=== PATIENT | male | born 1970 | race Caucasian/White ===

== ENCOUNTER 2016-11-19 23:48 | Emergency (ER) | payer MEDICAID ==
--- NOTE | ~2016-11-19 | CR253 ---
STS. [facility] A Service of [facility] & [facility] RADIOLOGY TEXT RESULTS PATIENT: ADIEL NICOLE LOCATION: SED : 72 UNIT #: [id number] AGE: [address]: ABRIL MENENDEZ SEX: M ORDER DR: [id number] [address] [address] [id number] E MR#: [id number] Acc #: [id number] NAME: ADIEL NICOLE : 1970 SEX: M STUDY DATE/TIME: 11/20/2016 0:34 UNIT: SED ROOM: STUDY DESCRIPTION: CR Tibia and Fibula 2 Views Rt Attending Physician: Abril Menendez Aprn Ordering Physician: Abril Menendez Aprn Primary Care Physician: Estephania Amor M.D. MEDICAL IMAGING REPORT This report is preliminary unless electronic signature is present. EXAM Right tibia and fibula INDICATION Right tib-fib pain after tripping last night. FINDINGS There is no evidence of fracture, dislocation, or radiopaque foreign body. IMPRESSION Normal tibia and fibula. Dictated by... Ryan Conti M.D. THIS IS AN ELECTRONICALLY VERIFIED REPORT Ryan Conti M.D. at 11/20/2016 1:32 PM JORGE/sanjeev TD: 11/20/2016 08:31 JOB #: [id number] MEDICAL IMAGING REPORT Page 1 of 1
--- NOTE | ~2016-11-19 | CR21 ---
[facility]. [facility] A Service of [facility] & [facility] RADIOLOGY TEXT RESULTS PATIENT: ADIEL NICOLE LOCATION: SED : 72 UNIT #: [id number] AGE: [address]: ABRIL MENENDEZ SEX: M ORDER DR: [id number] [address] [address] [id number] E MR#: [id number] Acc #: [id number] NAME: ADIEL NICOLE : 1970 SEX: M STUDY DATE/TIME: 11/20/2016 0:34 UNIT: SED ROOM: STUDY DESCRIPTION: CR Ankle Min 3 Views Rt Attending Physician: Abril Menendez Aprn Ordering Physician: Abril Menendez Aprn Primary Care Physician: Estephania Amor M.D. MEDICAL IMAGING REPORT This report is preliminary unless electronic signature is present. EXAM Right ankle INDICATION Right ankle pain after tripping tonight. FINDINGS AP, lateral, and oblique projections of the ankle show satisfactory integrity of the joint mortise with a smooth articular surface. There is no identifiable fracture, dislocation, or radiopaque foreign body. IMPRESSION Normal ankle. Dictated by... Ryan Conti M.D. THIS IS AN ELECTRONICALLY VERIFIED REPORT Ryan Conti M.D. at 11/20/2016 1:32 PM Douglas TD: 11/20/2016 08:33 JOB #: [id number] MEDICAL IMAGING REPORT Page 1 of 1
[~2016-11-19 23:48] MED LIST: ADDERALL20 MG PO; ADDERALLXR PO; BACTRIM 400-801 TA1 PO; BACTRIM DS TABL1 TA1 PO; BACTROBAN22 GM TP; CIPRO PO; CLEOCIN150 M1 PO; DICLOFENAC; EFFEXOR PO; EFFEXOR XR75 MG PO; FAMOTIDINE PO; FLEXERIL PO; FLEXERIL10 M1 PO; FLOMAX0.4 M1; FLOMAX0.4 M1 PO; IBUPROFEN PO; IBUPROFEN800 MG PO; KEFLEX500 M1 PO; LIPITOR PO; LIPITOR20 MG; LIPITOR20 MG DOB; LIPITOR20 MG PO; LOPRESSOR PO; LORTAB 101 TAB 10/5 PO; MEDROL PO; METOPROLOL SUCC50 MG PO; MULTIPLE VITAMIN; NEXIUM20 MG DOB; NO MEDICATIONS; PERCOCET 5-3251 TAB PO; PHENERGAN25 M1 PO; PROZAC PO; PROZAC40 MG PO; ROBAXIN 750750 M1 PO; SEROQUEL PO; TOPAMAX PO; TOPROL XL 50 MG50 MG PO; TYLENOL #3 PO; TYLOX 5/500 CAP1 CAP PO; VOLTAREN75 MG PO; ZOFRAN PO
[2016-11-20] MEDS ORDERED: METFORMIN HCL500 M1 PO
[2016-11-20] MEDS ORDERED: BUPROPION XL300 MG PO (00:01)
== END 2016-11-20 01:30 | disposition home or self-care (01) ==
LOC: SED 23:48
DX: S96.911A Strain of unspecified muscle and tendon at ankle and foot level, right foot, initial encounter (principal); E78.5 Hyperlipidemia, unspecified; I10 Essential (primary) hypertension; E11.9 Type 2 diabetes mellitus without complications; F17.210 Nicotine dependence, cigarettes, uncomplicated; Z88.0 Allergy status to penicillin; Z79.899 Other long term (current) drug therapy; W01.0XXA Fall on same level from slipping, tripping and stumbling without subsequent striking against object, initial encounter
CPT/HCPCS: 29405; 73590; 73610; 99283

== ENCOUNTER → 2016-12-07 | Outpatient (CLI) | payer MEDICAID ==
[~2016-12-07] MED LIST changes: +BUPROPION XL300 MG PO; +METFORMIN HCL500 M1 PO
--- NOTE | ~2016-12-07 | CR21 ---
[facility] A Service of [facility] & [facility] RADIOLOGY TEXT RESULTS PATIENT: ADIEL NICOLE LOCATION: [facility] : 71 UNIT #: [id number] AGE: [address]: Estephania mAor MD SEX: M ORDER DR: [id number] [facility]. [place], [place] [address] [id number] O MR#: [id number] Acc #: [id number] NAME: ADIEL NICOLE : 1970 SEX: M STUDY DATE/TIME: UNIT: [facility] ROOM: STUDY DESCRIPTION: CR Ankle Min 3 Views Rt Attending Physician: Estephania Amor M.D. Ordering Physician: Estephania Amor M.D. Primary Care Physician: Estephania Amor M.D. MEDICAL IMAGING REPORT This report is preliminary unless electronic signature is present EXAM Right ankle 3 views 12/07/2016 1040 hours HISTORY Patient suffered twisting injury 2 weeks ago with persistent moderate to severe pain. Evaluate for occult fracture. Secondary evaluation. COMPARISON 11/20/2016 FINDINGS AP, lateral and oblique views demonstrate increased lateral soft tissue swelling greater than medial since the prior exam. There is no fracture or dislocation. There is a small soft tissue calcification medially in the hind foot not seen on prior study but felt unlikely to represent an avulsion fracture. IMPRESSION 1. There is increase soft tissue swelling lateral greater than medial. This has increased from 11/20/2016. No definite fracture or dislocation. 2. A small 3 mm soft tissue calcification is seen in the posterior medial soft tissues on 1 view. This is felt unlikely to represent an avulsion fracture. This is not seen on 11/20/2016 but this may be obscured due to differences in obliquity on the oblique views. Dictated by... Bebe Cavazos M.D. THIS IS AN ELECTRONICALLY VERIFIED REPORT Bebe Cavazos M.D. at 12/08/2016 9:24 AM SMM/to [facility]. [facility] A Service of [facility] & [facility] RADIOLOGY TEXT RESULTS PATIENT: ADIEL NICOLE LOCATION: [facility] #: [id number] : 72 UNIT #: [id number] AGE: [address]: Estephania Amor MD SEX: M ORDER DR: TD: 12/07/2016 18:24 JOB #: [id number] MEDICAL IMAGING REPORT Page 1 of 1 COPY
== END | disposition home or self-care (01) ==
LOC: CRAD 10:22
DX: M25.571 Pain in right ankle and joints of right foot (principal); M25.471 Effusion, right ankle; M79.89 Other specified soft tissue disorders
CPT/HCPCS: 73610

== ENCOUNTER → 2016-12-30 | Outpatient (CLI) | payer MEDICAID ==
--- NOTE | ~2016-12-30 | MR11 ---
[facility] A Service of [facility] RADIOLOGY TEXT RESULTS PATIENT: ADIEL NICOLE LOCATION: [facility] : 72 UNIT #: [id number] AGE: [address]: Сергей Palomino MD SEX: M ORDER DR: [id number] [address] [address] [id number] O MR#: [id number] Acc #: [id number] NAME: ADIEL NICOLE : 1970 SEX: M STUDY DATE/TIME: 12/30/2016 14:41 UNIT: [facility] ROOM: STUDY DESCRIPTION: MR Ankle Wo Contrast Rt Attending Physician: Dung Palomino M.D. Referring Physician: Dung Palomino M.D. Ordering Physician: Dung Palomino M.D. Primary Care Physician: Estephania Amor M.D. MRI CENTER REPORT This report is preliminary unless electronic signature is present. EXAM MRI right ankle hindfoot 12/30/2016. COMPARISON STUDIES Right ankle radiographs 11/20/2016, 12/07/2016, 12/24/2016, right tibia-fibula radiographs 11/20/2016. There is a moderate tibiotalar joint effusion. There is disruption of the anterior inferior tibiofibular ligament. There is a posterior peripheral articular fracture, or periosteal and avulsive injury of the posterior malleolus with evidence of subtle injury of the posterior tibiofibular ligament. This corresponds with development of calcification radiographically on 12/07/2016 and 12/24/2016 compared to the presumed initial injury films of 11/20/2016 where there is no visible fracture or abnormality even in retrospect. There is associated syndesmotic injury with edema involving the interosseous membrane accounting for interosseous early ossification radiographically. There is minimal syndesmotic widening. The anterior and posterior talofibular ligaments and calcaneofibular ligament are intact. The medial deltoid ligament complex is within normal limits. Within the fluid distended anterior tibiotalar recess, there is a longitudinal filling defect on the lateral side and a small rounded filling defect on the medial side. These demonstrate slight increased T1 signal and are favored to reflect sequela of hemarthrosis. There is no chondral/osteochondral lesion to definitely suggest that these could be loose bodies. [facility] A Service of [facility] RADIOLOGY TEXT RESULTS PATIENT: ADIEL NICOLE LOCATION: [facility] : 72 UNIT #: [id number] AGE: [address]: Сергей Palomino MD SEX: M ORDER DR: Subtalar joints are normal. Ankle tendons are normal. Sinus tarsi and tarsal tunnel are normal. Plantar fascia thickening without tear or inflammation compatible with chronic plantar fasciopathy. No muscle atrophy is noted. Visualized midfoot is within normal limits. There is subcutaneous inflammation in the ankle predominating laterally. IMPRESSION 1. The predominant abnormality is a subacute - appearing distal tibio-fibular syndesmotic injury with associated disruption of the anterior inferior tibiofibular ligament, injury of the interosseous ligament with minimal syndesmotic widening, and posterior malleolar fracture and/or periosteal injury of the posterior tibiofibular ligament insertion with development of radiographic ossification. Ossification is also noted radiographically at the injured syndesmosis detailed above. 2. Tibiotalar complex signal joint effusion with the anterior recess filling defects probably related to hemarthrosis rather than loose bodies. The tibiotalar joint demonstrates no definite articular cartilage injury or defect. 3. The remainder the ankle ligaments and ankle tendons are normal. 4. Lateral ankle soft tissue edema. Chronic plantar fasciopathy. Dictated by... Lubna Atkinson M.D. THIS IS AN ELECTRONICALLY VERIFIED REPORT Lubna Atkinson M.D. at 12/31/2016 1:48 PM JERSON/molly TD: 12/31/2016 12:57 JOB #: [id number] MRI CENTER REPORT Page 1 of 1
== END | disposition home or self-care (01) ==
LOC: SMRI 13:40
DX: M25.571 Pain in right ankle and joints of right foot (principal); M25.471 Effusion, right ankle; M72.2 Plantar fascial fibromatosis
CPT/HCPCS: 73721